=== PATIENT | female | born 1975 | race Caucasian/White ===

== ENCOUNTER 2018-09-21 16:02 | Observation (INO) ==
[2018-09-21] MEDS ORDERED: ONDANSETRON 4 MG/2 ML VIAL IVP ONE (16:29)
[2018-09-21] MEDS ORDERED: BENZOCAINE ORAL 57 GM SPRAY PO PRN (16:29)
[2018-09-21] MEDS ORDERED: KETOROLAC 15 MG/1 ML VIAL IVP ONE (16:29)
[2018-09-21] MEDS ORDERED: Sodium Chloride 0.9% 1,000 ML PRIMARY IV ONE (16:29)
--- NOTE | 2018-09-21 16:31 | PDOC ---
Dyspnea HPI - General Chief Complaint: Dyspnea Stated Complaint: dyspnea Date Seen by Provider: 09/21/18 Time Seen by Provider: 16:20 Source: POSITIVE: Patient Exam Limitations: POSITIVE: No limitations Treatment Prior to Arrival: REPORTS: None Nurse's Notes Reviewed & Considered: Yes - History of Present Illness Initial Comments: This is a well-developed, obese, 43-year-old female, complaining of chest pain, shortness of breath, cough. Patient has had her symptoms ongoing for approximately 3 days with intermittent chest pain that she describes as pressure that is nonradiating. She denies any headache, shows a mild sore throat, denies any nausea vomiting or diarrhea, no hematuria or dysuria, no myalgias or arthralgias. Body Location Affected: REPORTS: Chest Timing: REPORTS: Constant, Getting Worse Duration: >24 hours Severity: Moderate Quality: REPORTS: "Pain", Pressure Initiating Event: REPORTS: Upper Respiratory Illness Exacerbated By: REPORTS: Exertion, Coughing Associated Symptoms: REPORTS: Chest Pain, Central Chest, Chest Heaviness Similar Symptoms Previously: No Recently seen/treated/hospitalized: No Any Prior Injuries Related to Current Complaint?: No - Patient Home Medications Home Medications: Home Medications Albuterol [Proventil] 17 gm IH Q6H PRN 09/21/18 - Patient Allergies Allergies/Adverse Reactions: Allergies 3 Allergy/AdvReac Type Severity Reaction Status Date / Time Influenza Virus Vaccines Allergy NOT Verified 09/21/18 20:07 APPLICABLE ROS - Limitations ROS Limitations: No Limitations Constitution: REPORTS: Denies Symptoms Cardiovascular: REPORTS: Chest Pain Respiratory: REPORTS: Cough Non Productive, Shortness Of Breath Neurological: REPORTS: Denies Neuro Symptoms Gastrointestinal: REPORTS: Denies GI Symptoms Endocrine: REPORTS: Denies Symptoms Musculoskeletal: REPORTS: Denies MS Symptoms Genitourinary: REPORTS: Denies Symptoms Eyes: REPORTS: Denies Symptoms ENT: REPORTS: Sore Throat Skin: REPORTS: Denies Skin Symptoms Lympathic: REPORTS: Denies Lympathic Symptoms Immunologic: POSITIVE: Denies Symptoms Psychiatric: POSITIVE: Denies Psych Symptoms Dyspnea Physical Exam - General Appearance General Appearance: REPORTS: Alert, Cooperative, No Acute Distress, No Evidence of Trauma - HEENT HEENT: POSITIVE: Head Inspection Nml, Eyes Inspection Nml, Ears Inspection Nml, Nose Inspection Nml, Oral/Dental Inspect. Nml, Pharynx Inspect. Nml, PERRL, EOMI - Neck Neck: REPORTS: Normal Inspection - Respiratory Respiratory: REPORTS: No Respiratory Distress, Breath Sounds Normal, No Pleuritic Chest Pain, Speaks Full Sentences, No Pain on Inspiration - Cardiovascular Cardiovascular: REPORTS: Regular Rate and Rhythm, Heart Sounds Normal, Strong Pulses, No Murmur, No Gallop, No Friction Rub, No JVD Peripheral Pulses: Radial (L): 4+ - Abdomen Abdomen: Soft: (All Quadrants), Normal Bowel Sounds: (All Quadrants), Denies Tenderness: (All Quadrants), No Splenomegaly: (All Quadrants), No Hepatomegaly: (All Quadrants), No Guarding: (All Quadrants), No Rebound: (All Quadrants), No Palpable Pulse: (All Quadrants), No Palpabale Mass: (All Quadrants), No Distention: (All Quadrants), No Rigidity: (All Quadrants) - Skin Skin: REPORTS: Intact, Normal For Race, Warm, Dry, No Rash - Extremities Extremity: Non-Tender: (All Extremities), Normal ROM: (All Extremities), Normal Inspection: (All Extremities), Pelvis Stable: (All Extremities) - Neurological / Psychological Neurological: POSITIVE: Affect Apporpriate, Oriented X3, Motor Normal, Sensation Normal Dyspnea Progress - Results Reviewed by me Xrays/CTs/US Reviewed by me: Yes Discussed with Radiologist: Yes Lab Results Reviewed by Me: Yes CBC and BMP: 09/21/18 16:30 09/21/18 16:30 Lab Results:: Laboratory Results 3 09/21/18 09/21/18 09/21/18 16:29 16:30 16:30 WBC 6.52 RBC 4.73 Hgb 14.1 Hct 40.9 MCV 86.5 MCH 29.8 MCHC 34.5 RDW Std Deviation 42.4 RDW Coeff of Kwame 13.7 Plt Count 321 MPV 9.8 Immature Gran % (Auto) 0.3 Neut % (Auto) 60.2 Lymph % (Auto) 29.8 [place] % (Auto) 7.1 Eos % (Auto) 2.1 Baso % (Auto) 0.5 Immature Gran # (Auto) 0.02 Neut # (Auto) 3.93 Lymph # (Auto) 1.94 [place] # (Auto) 0.46 Eos # (Auto) 0.14 Baso # (Auto) 0.03 WBC Morphology Comment Normal morphology Plt Morphology Comment Normal morphology RBC Morph Comment Normal morphology D-Dimer 0.37 Sodium Potassium Chloride Carbon Dioxide Anion Gap BUN Creatinine Estimated GFR BUN/Creatinine Ratio Glucose Calculated Osmolality Calcium Magnesium Total Bilirubin AST ALT Alkaline Phosphatase CK-MB (CK-2) Troponin I Handheld 0.000 C-Reactive Protein NT-Pro-B Natriuret Pep Total Protein Albumin Globulin Albumin/Globulin Ratio TSH Group A Strep Screen 3 09/21/18 09/21/18 09/21/18 16:30 16:30 17:01 WBC RBC Hgb Hct MCV MCH MCHC RDW Std Deviation RDW Coeff of Kwame Plt Count MPV Immature Gran % (Auto) Neut % (Auto) Lymph % (Auto) [place] % (Auto) Eos % (Auto) Baso % (Auto) Immature Gran # (Auto) Neut # (Auto) Lymph # (Auto) [place] # (Auto) Eos # (Auto) Baso # (Auto) WBC Morphology Comment Plt Morphology Comment RBC Morph Comment D-Dimer Sodium 141 Potassium 3.6 L Chloride 110 Carbon Dioxide 23 Anion Gap 8 BUN 14 Creatinine 0.8 Estimated GFR > 60 BUN/Creatinine Ratio 17.50 Glucose 94 Calculated Osmolality 292.0 Calcium 8.7 Magnesium 1.9 Total Bilirubin 0.3 AST 44 H ALT 47 Alkaline Phosphatase 85 CK-MB (CK-2) 9.35 H Troponin I Handheld C-Reactive Protein 0.9 NT-Pro-B Natriuret Pep 71.7 Total Protein 6.9 Albumin 4.1 Globulin 2.9 Albumin/Globulin Ratio 1.40 TSH 1.15 Group A Strep Screen Negative 3 09/21/18 09/21/18 18:31 18:31 WBC RBC Hgb Hct MCV MCH MCHC RDW Std Deviation RDW Coeff of Kwame Plt Count MPV Immature Gran % (Auto) Neut % (Auto) Lymph % (Auto) [place] % (Auto) Eos % (Auto) Baso % (Auto) Immature Gran # (Auto) Neut # (Auto) Lymph # (Auto) [place] # (Auto) Eos # (Auto) Baso # (Auto) WBC Morphology Comment Plt Morphology Comment RBC Morph Comment D-Dimer Sodium Potassium Chloride Carbon Dioxide Anion Gap BUN Creatinine Estimated GFR BUN/Creatinine Ratio Glucose Calculated Osmolality Calcium Magnesium Total Bilirubin AST ALT Alkaline Phosphatase CK-MB (CK-2) 7.21 H Troponin I Handheld 0.000 C-Reactive Protein NT-Pro-B Natriuret Pep Total Protein Albumin Globulin Albumin/Globulin Ratio TSH Group A Strep Screen EKG Interpreted/Reviewed By Me:: Yes (sinus rhythm, 79 beats a minute, no ST elevations.) EKG Interpretation:: POSITIVE: Normal Sinus Rhythm, Normal ST/T - Patient's Progress Pain Medication Addressed: POSITIVE: Yes Status: POSITIVE: Improved MDM / ED Course: Patient was evaluated, an IV started, blood drawn and sent to the lab for studies, EKG and chest x-ray were obtained. Findings: Initial troponin was 0.000 an initial CK MB was 9.35. Upon repeat 2 hours later troponin was 0.000, and CK-MB was 7.21. D-dimer is normal at 0.37, CRP is normal at 0.9, BNP is normal at 71.7. CBC is normal. CMP shows a potassium of 3.6 and AST of 44. Strep swab is negative. TSH is 1.15. Mycoplasma is negative. Chest x-ray shows no acute cardiopulmonary decompensation. Assessment: #1 chest pain and shortness of breath. Patient is being admitted for rule out myocardial infarction. #2 laryngitis. Plan: Patient being admitted for rule out [place]. Air Movement: POSITIVE: Fair Quality Measure Initiative: CP/AMI: POSITIVE: EKG Quality Measure Initiative: CAP: POSITIVE: CXR or CT - Consult Consult (If Yes, Name of Consulting MD & Time Called): Yes (Dr. Hanson) Consulting MD will see pt:: POSITIVE: [facility] [place] Admit Counseled: POSITIVE: Patient, RE: Lab Results, RE: Radiology Results, RE: DX, RE : Need for F/U Patient Care Time - Estimated PCT Patient Care Time (In Minutes): 45 Vital Signs - Recent Vital Signs Vital Signs: Vital Signs (Last 8 hours) Temp Pulse Pulse Pulse Resp BP Pulse Ox 09/21/18 17:31 96.4 F L 99 99 22 146/90 98 09/21/18 16:04 95.9 F L 99 22 146/90 98 - VS Reviewed Vital Signs Reviewed: Yes Discharge Clinical Impression: Chest pain Discharge Disposition: Admit to Inpatient Condition: Fair Date Decision to Admit to Inpatient: 09/21/18 Time Decision to Admit to Inpatient: 18:48
[2018-09-21 16:40] LABS: BASOPHILS # (AUTO) 0.03 10*3/UL; BASOPHILS % (AUTO) 0.5 % (0-1); EOSINOPHILS # (AUTO) 0.14 10*3/UL; EOSINOPHILS % (AUTO) 2.1 % (0-8); Hematocrit [HCT] 40.9 % (37.0-47.0); Hemoglobin [HGB] 14.1 g/dL (12.0-16.0); LYMPHOCYTES # (AUTO) 1.94 10*3/uL; MEAN CORPUSCULAR HEMOGLOBIN 29.8 PG (27-31); MEAN CORPUSCULAR HGB CONC 34.5 g/dL (33-37); MEAN CORPUSCULAR VOLUME 86.5 FL (81-99); MEAN PLATELET VOLUME 9.8 FL (7.4-12.2); MONOCYTES # (AUTO) 0.46 10*3/UL (0.3-0.8); MONOCYTES % (AUTO) 7.1 % (5-15); NEUTROPHILS # (AUTO) 3.93 10*3/UL; NEUTROPHILS % (AUTO) 60.2 % (50-80); RED BLOOD COUNT 4.73 10^6/uL (4.20-5.40)
[2018-09-21 16:42] LABS: PLATELET MORPHOLOGY COMMENT NORMAL MORPHOLOGY (NORM); RBC MORPHOLOGY COMMENT NORMAL MORPHOLOGY (NORM); WBC MORPHOLOGY COMMENT NORMAL MORPHOLOGY (NORM)
--- NOTE | 2018-09-21 16:52 | EKG ---
[address] [address] Measurements Intervals [place] Rate: 79 P: 66 WV: 150 QRS: 48 QRSD: 94 T: 40 QT: 377 QTc: 412 Interpretive Statements SINUS RHYTHM No previous ECG available for comparison Electronically Signed On 09-21-18 18:37:09 MST by Richard Quintero [email or web address]
[2018-09-21 16:53] LABS: BLOOD UREA NITROGEN 14 mg/dL (7-22); SERUM ALBUMIN 4.1 g/dL (3.5-4.8)
--- NOTE | 2018-09-21 17:52 | DI ---
XR CXR 2VW PA/LAT,09/21/2018 4:29 PM: Clinical History: Cough, chest pain and shortness of breath. Previous Exam: None at this facility. Findings: PA and lateral views of the chest are obtained, and demonstrate clear lungs. The cardiomediastinum an d bony thorax are unremarkable. Impression: Normal chest.
--- NOTE | 2018-09-21 18:26 | EKG ---
[address] [address] Measurements Intervals [place] Rate: 74 P: 65 TN: 149 QRS: 45 QRSD: 86 T: 45 QT: 388 QTc: 415 Interpretive Statements SINUS RHYTHM Compared to ECG 09/21/2018 16:53:08 No significant changes Electronically Signed On 09-21-18 18:36:59 MST by Richard Quintero [email or web address]
[2018-09-21] MEDS ORDERED: ONDANSETRON 4 MG/2 ML VIAL IVP PRN (19:31)
[2018-09-21] MEDS ORDERED: CALCIUM CARBONATE 500 MG (TUMS) CHEWABLE TABLET PO PRN (19:31)
[2018-09-21] MEDS ORDERED: LIDOCAINE W/ SODIUM BICARB 0.5 ML SYR SUBD PRN (19:31)
[2018-09-21] MEDS ORDERED: ALBUTEROL SULFATE 2.5 MG/3 ML NEB PRN (19:31)
[2018-09-21] MEDS ORDERED: ASPIRIN 81 MG (BABY) CHEWABLE TABLET PO ONE (19:31)
[2018-09-21] MEDS ORDERED: NITROGLYCERIN 0.4 MG SL TAB (BOTTLE OF 3) SL PRN (19:31)
[2018-09-21 19:46] LABS: URINE SAMPLE TYPE VOIDED SPECIMEN
[2018-09-21 19:47] LABS: AMPHETAMINE SCREEN NEGATIVE (NEG); CANNABINOID SCREEN,URINE NEGATIVE (NEG); COCAINE SCREEN NEGATIVE (NEG); METHADONE URINE SCREEN NEGATIVE (NEG); METHAMPHETAMINES SCREEN,URINE NEGATIVE (NEG); OPIATE SCREEN,URINE NEGATIVE (NEG)
[2018-09-21] MEDS ORDERED: NICOTINE 21 MG /DAY PATCH TRANSDERM ONE (20:00)
--- NOTE | 2018-09-21 20:07 | PDOC ---
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 She states she's been coughing and has had increased phlegm. She came in today thinking that she might get breathing treatments and steroids, but her CK-MB fraction was elevated despite a negative troponin. EKGs appeared normal. She smokes a pack per day, has a positive family history. She does not have any diabetes, hypertension, or hypercholesterolemia. Given the abnormality in the CK-MB, patient risk factors , was felt that the patient might warrant checking stress test to make sure she does not have underlying coronary artery disease. She states that she has been using an albuterol inhaler at home but ran out this morning but it has not really been helping her much with these symptoms. Notably she also admits to smoking marijuana and drinks a sixpack of beer per night Past Medical History Medical History: 1. Asthma versus COPD. 2. Tobacco abuse. 3. Guillian- barre syndrome Surgical History: 1. . 2. History of tracheostomy Pertinent Family History: Significant for coronary artery disease and vascular issues in her mother Past Social History: History children, 4-year-old and an 18-year-old that are described as healthy. Single. Works here at a hotel. He smokes a pack per day , drinks a sixpack of beer a night, admits to smoking marijuana Tobacco Use: Current Every Day Smoker Do you dip or chew tobacco: No In the Past 12 Months, Have Used or Abuse Any of the Following Substance: Marijuana Alcohol Use: Heavy Medication / Allergies Home Medications: Home Medications 3 Medication Instructions Recorded Confirmed Type Albuterol [Proventil] 17 gm IH Q6H PRN 09/21/18 09/21/18 History Allergies/Adverse Reactions: Allergies 3 Allergy/AdvReac Type Severity Reaction Status Date / Time Influenza Virus Vaccines Allergy NOT Verified 09/21/18 20:07 APPLICABLE Review of Systems - Review of Systems All Systems: Reviewed & No Additional Complaints Except as Stated (I did a 12 point review systems and it was negative other than that discussed in the history of present illness and except as noted below) - Constitutional Constitutional: REPORTS: Weight Loss (Has lost 27 pounds, intentional) - Neurological Neurologic: REPORTS: Difficulty Walking (Due to foot drop from Guillain-barre syndrome), Other (Guillain-barre syndrome in the past) - Psychiatric Psychiatric: REPORTS: Anxiety (chronic) Exam - Vitals Vital Signs: Vital Signs Temperature 96.4 F Temperature Source Temporal Artery Scan Pulse Rate [Pulse Oximeter 99 Right] Pulse Rate [Pulse Oximeter 99 Bilateral Radial] Pulse Rate 99 Respiratory Rate 22 Blood Pressure [Left Arm] 146/90 Blood Pressure [Left Arm] 146/90 Pulse Ox 98 Oxygen Delivery Method Room Air Height 5 ft 1 in Weight 218 lb - General General Appearance: No Acute Distress, Cooperative, Obese - Head Head Exam: Normal Inspection, Normocephalic, Atraumatic - Eye Eye Exam: POSITIVE: No Scleral Icterus - ENT ENT Exam: POSITIVE: Normal External Ear Exam, Normal Oropharynx, TM's Normal Bilaterally, Mucous Membranes Moist - Neck Neck Exam: Normal Inspection, No Tenderness, No Lymphadenopathy, No Thyromegaly - Respiratory Respiratory Exam: POSITIVE: Clear to Auscultation - Bilaterally, Breathing Non Labored, Normal to Percussion and Palpation - Cardiovascular Cardiovascular Exam: POSITIVE: RRR, No Murmur, No Clicks, No Gallops, No Rubs, No JVD - GI/Abdominal GI/Abdominal Exam: POSITIVE: Normal Bowel Sounds, Non Tender, Non Distended, Soft - Rectal Rectal Exam: POSITIVE: Deferred - External Exam: POSITIVE: Deferred Exam: POSITIVE: Deferred - Extremities Extremities Exam: POSITIVE: No Clubbing Present, No Edema Present, No Cyanosis Present - Back Back Exam: POSITIVE: No CVA Tenderness - Neurological Neurological Exam: POSITIVE: Alert, Oriented x 3, No Facial Droop, Speech Intact / Clear, Moves All Extremities Equally - Psychiatric Psychiatric Exam: POSITIVE: Normal Affect, Normal Mood Results - Labs CBC and BMP: 09/21/18 16:30 09/21/18 16:30 Additional Lab Results: Laboratory Results 09/21/18 09/21/18 09/21/18 Range/Units 16:29 16:30 16:30 WBC 6.52 (4.8-10.8) 10^3/uL RBC 4.73 (4.20-5.40) 10^6/uL Hgb 14.1 (12.0-16.0) g/dL Hct 40.9 (37.0-47.0) % MCV 86.5 (81-99) FL MCH 29.8 (27-31) PG MCHC 34.5 (33-37) g/dL RDW Std Deviation 42.4 (39-50) fL RDW Coeff of Kwame 13.7 (11.5-14.5) % Plt Count 321 (140-350) 10*3/uL MPV 9.8 (7.4-12.2) FL Immature Gran % (Auto) 0.3 (0-5) % Neut % (Auto) 60.2 (50-80) % Lymph % (Auto) 29.8 (10-50) % Russell % (Auto) 7.1 (5-15) % Eos % (Auto) 2.1 (0-8) % Baso % (Auto) 0.5 (0-1) % Immature Gran # (Auto) 0.02 10*3/UL Neut # (Auto) 3.93 10*3/UL Lymph # (Auto) 1.94 10*3/uL Russell # (Auto) 0.46 (0.3-0.8) 10*3/UL Eos # (Auto) 0.14 10*3/UL Baso # (Auto) 0.03 10*3/UL WBC Morphology Comment Normal morphology (NORM) Plt Morphology Comment Normal morphology (NORM) RBC Morph Comment Normal morphology (NORM) D-Dimer 0.37 (0.00-0.59) mg/L Sodium (135-145) meq/L Potassium (3.8-5.2) meq/L Chloride (98-112) meq/L Carbon Dioxide (23-33) meq/L Anion Gap (5-20) BUN (7-22) mg/dL Creatinine (0.50-1.20) mg/dL Estimated GFR (>60 ml/min/1.73m(2)) BUN/Creatinine Ratio (6-20) Glucose (78-110) mg/dL Calculated Osmolality (267-292) mOsm/kg Calcium (8.7-10.7) mg/dL Magnesium (1.6-2.4) mg/dL Total Bilirubin (0.3-1.2) mg/dL AST (8-39) IU/L ALT (9-52) IU/L Alkaline Phosphatase (38-126) IU/L CK-MB (CK-2) (0.00-5.00) NG/ML Troponin I Handheld 0.000 (< 0.040) ng/mL C-Reactive Protein (0.0-0.9) mg/dL NT-Pro-B Natriuret Pep (0-125) PG/ML Total Protein (6.1-8.0) g/dL Albumin (3.5-4.8) g/dL Globulin (2.50-4.10) g/dL Albumin/Globulin Ratio (1.3-2.0) mg/g TSH (0.2700-4.2000) uIU/mL Ur Collection Type U Specif Grav (Refrac) Urine Opiates Screen (NEG) Ur Buprenorphine (NEG) Ur Oxycodone Screen (NEG) Urine Methadone Screen (NEG) Ur Propoxyphene Screen (NEG) Barbiturate Screen (NEG) U Tricyclic Antidepress (NEG) Phencyclidine Screen (NEG) Amphetamines Screen (NEG) U Methamphetamines Scrn (NEG) Benzodiazepines Screen (NEG) Cocaine Screen (NEG) U Marijuana (THC) Screen (NEG) Group A Strep Screen (NEGATIVE) 09/21/18 09/21/18 09/21/18 Range/Units 16:30 16:30 17:01 WBC (4.8-10.8) 10^3/uL RBC (4.20-5.40) 10^6/uL Hgb (12.0-16.0) g/dL Hct (37.0-47.0) % MCV (81-99) FL MCH (27-31) PG MCHC (33-37) g/dL RDW Std Deviation (39-50) fL RDW Coeff of Wkame (11.5-14.5) % Plt Count (140-350) 10*3/uL MPV (7.4-12.2) FL Immature Gran % (Auto) (0-5) % Neut % (Auto) (50-80) % Lymph % (Auto) (10-50) % Russell % (Auto) (5-15) % Eos % (Auto) (0-8) % Baso % (Auto) (0-1) % Immature Gran # (Auto) 10*3/UL Neut # (Auto) 10*3/UL Lymph # (Auto) 10*3/uL Russell # (Auto) (0.3-0.8) 10*3/UL Eos # (Auto) 10*3/UL Baso # (Auto) 10*3/UL WBC Morphology Comment (NORM) Plt Morphology Comment (NORM) RBC Morph Comment (NORM) D-Dimer (0.00-0.59) mg/L Sodium 141 (135-145) meq/L Potassium 3.6 L (3.8-5.2) meq/L Chloride 110 (98-112) meq/L Carbon Dioxide 23 (23-33) meq/L Anion Gap 8 (5-20) BUN 14 (7-22) mg/dL Creatinine 0.8 (0.50-1.20) mg/dL Estimated GFR > 60 (>60 ml/min/1.73m(2)) BUN/Creatinine Ratio 17.50 (6-20) Glucose 94 (78-110) mg/dL Calculated Osmolality 292.0 (267-292) mOsm/kg Calcium 8.7 (8.7-10.7) mg/dL Magnesium 1.9 (1.6-2.4) mg/dL Total Bilirubin 0.3 (0.3-1.2) mg/dL AST 44 H (8-39) IU/L ALT 47 (9-52) IU/L Alkaline Phosphatase 85 (38-126) IU/L CK-MB (CK-2) 9.35 H (0.00-5.00) NG/ML Troponin I Handheld (< 0.040) ng/mL C-Reactive Protein 0.9 (0.0-0.9) mg/dL NT-Pro-B Natriuret Pep 71.7 (0-125) PG/ML Total Protein 6.9 (6.1-8.0) g/dL Albumin 4.1 (3.5-4.8) g/dL Globulin 2.9 (2.50-4.10) g/dL Albumin/Globulin Ratio 1.40 (1.3-2.0) mg/g TSH 1.15 (0.2700-4.2000) uIU/mL Ur Collection Type U Specif Grav (Refrac) Urine Opiates Screen (NEG) Ur Buprenorphine (NEG) Ur Oxycodone Screen (NEG) Urine Methadone Screen (NEG) Ur Propoxyphene Screen (NEG) Barbiturate Screen (NEG) U Tricyclic Antidepress (NEG) Phencyclidine Screen (NEG) Amphetamines Screen (NEG) U Methamphetamines Scrn (NEG) Benzodiazepines Screen (NEG) Cocaine Screen (NEG) U Marijuana (THC) Screen (NEG) Group A Strep Screen Negative (NEGATIVE) 09/21/18 09/21/18 09/21/18 Range/Units 18:31 18:31 19:30 WBC (4.8-10.8) 10^3/uL RBC (4.20-5.40) 10^6/uL Hgb (12.0-16.0) g/dL Hct (37.0-47.0) % MCV (81-99) FL MCH (27-31) PG MCHC (33-37) g/dL RDW Std Deviation (39-50) fL RDW Coeff of Kwame (11.5-14.5) % Plt Count (140-350) 10*3/uL MPV (7.4-12.2) FL Immature Gran % (Auto) (0-5) % Neut % (Auto) (50-80) % Lymph % (Auto) (10-50) % Russell % (Auto) (5-15) % Eos % (Auto) (0-8) % Baso % (Auto) (0-1) % Immature Gran # (Auto) 10*3/UL Neut # (Auto) 10*3/UL Lymph # (Auto) 10*3/uL Russell # (Auto) (0.3-0.8) 10*3/UL Eos # (Auto) 10*3/UL Baso # (Auto) 10*3/UL WBC Morphology Comment (NORM) Plt Morphology Comment (NORM) RBC Morph Comment (NORM) D-Dimer (0.00-0.59) mg/L Sodium (135-145) meq/L Potassium (3.8-5.2) meq/L Chloride (98-112) meq/L Carbon Dioxide (23-33) meq/L Anion Gap (5-20) BUN (7-22) mg/dL Creatinine (0.50-1.20) mg/dL Estimated GFR (>60 ml/min/1.73m(2)) BUN/Creatinine Ratio (6-20) Glucose (78-110) mg/dL Calculated Osmolality (267-292) mOsm/kg Calcium (8.7-10.7) mg/dL Magnesium (1.6-2.4) mg/dL Total Bilirubin (0.3-1.2) mg/dL AST (8-39) IU/L ALT (9-52) IU/L Alkaline Phosphatase (38-126) IU/L CK-MB (CK-2) 7.21 H (0.00-5.00) NG/ML Troponin I Handheld 0.000 (< 0.040) ng/mL C-Reactive Protein (0.0-0.9) mg/dL NT-Pro-B Natriuret Pep (0-125) PG/ML Total Protein (6.1-8.0) g/dL Albumin (3.5-4.8) g/dL Globulin (2.50-4.10) g/dL Albumin/Globulin Ratio (1.3-2.0) mg/g TSH (0.2700-4.2000) uIU/mL Ur Collection Type Voided specimen U Specif Grav (Refrac) 1.010 Urine Opiates Screen Negative (NEG) Ur Buprenorphine Negative (NEG) Ur Oxycodone Screen Negative (NEG) Urine Methadone Screen Negative (NEG) Ur Propoxyphene Screen Negative (NEG) Barbiturate Screen Negative (NEG) U Tricyclic Antidepress Negative (NEG) Phencyclidine Screen Negative (NEG) Amphetamines Screen Negative (NEG) U Methamphetamines Scrn Negative (NEG) Benzodiazepines Screen Negative (NEG) Cocaine Screen Negative (NEG) U Marijuana (THC) Screen Negative (NEG) Group A Strep Screen (NEGATIVE) - EKG Data -: EKG Interpreted by Me Rate: Normal EKG Shows Normal: Sinus Rhythm (On both EKGs) - EKG Data EKG Interpretation: Normal EKG - Imaging Status: Image Reviewed by Me (Chest x-ray on my view is negative) Assessment and Plan - Patient Problems (1) Upper respiratory infection Current Visit: Yes Status: Acute Code(s): J06.9 - Acute upper respiratory infection, unspecified Qualifiers: URI type: unspecified viral URI Qualified Code(s): J06.9 - Acute upper respiratory infection, unspecified (2) Exertional chest pain Current Visit: Yes Status: Acute Code(s): R07.9 - Chest pain, unspecified (3) Tobacco abuse Current Visit: Yes Status: Acute Code(s): Z72.0 - Tobacco use (4) Alcohol abuse Current Visit: Yes Status: Acute Code(s): F10.10 - Alcohol abuse, uncomplicated (5) Hypokalemia Current Visit: Yes Status: Acute Code(s): E87.6 - Hypokalemia (6) Hx of Guillain-[place] syndrome Current Visit: Yes Status: Acute Code(s): Z86.69 - Personal history of other diseases of the nervous system and sense organs - Assessment / Plan Additional Assessment/Plan Details: Plan: 1. Do serial enzymes with troponins. CK-MB did come down on the last test 2. Aspirin, Lovenox 3. We'll have the patient do a stress test [chemical] 4. Proton pump inhibitor 5. Nitroglycerin when necessary for chest pain 6. Given the issues with Guillain-barre syndrome, no flu vaccine 7. Oxygen if necessary 8. If testing indicates further need for evaluation, discussion with cardiology. If testing is negative for myocardial infarction and no further indication for coronary artery disease, consider outpatient workup for GI source , pulmonary source, or other 9. zithromax, prednisone, oxygen as necessary, breathing therapies PRN, and [place] on tobacco cessation; try nicotine patch. 10. lipid panel and TSH in AM plan discussed with patient and she agreed.
[2018-09-21] MEDS: predniSONE Tab 20 MG TAB PO SCH (20:30)
[2018-09-21] MEDS: AZITHROMYCIN 250 MG TABLET PO SCH (20:30)
[2018-09-21] MEDS: IBUPROFEN 400 MG TABLET PO PRN (20:40)
[2018-09-21] MEDS: LORazepam 1 MG TABLET PO PRN (21:30)
[2018-09-22] MEDS: IBUPROFEN 400 MG TABLET PO PRN ×2 (03:29→10:17)
[2018-09-22 06:58] LABS: CHOL/HDL RATIO 2.63 RATIO (0-4.0)
[2018-09-22] MEDS: ENOXAPARIN SODIUM 40 MG/0.4 ML SYRINGE SUBCUT SCH (08:01)
[2018-09-22] MEDS: predniSONE Tab 20 MG TAB PO SCH (08:01)
[2018-09-22] MEDS: AZITHROMYCIN 250 MG TABLET PO SCH (08:01)
[2018-09-22] MEDS: PANTOPRAZOLE IV 40 MG VIAL IVP SCH (08:02)
[2018-09-22] MEDS: ASPIRIN 81 MG (BABY) CHEWABLE TABLET PO SCH (08:02)
[2018-09-22] MEDS: NICOTINE 21 MG /DAY PATCH TRANSDERM SCH (08:02)
--- NOTE | 2018-09-22 10:15 | PDOC(PROG) ---
Date of Service: 09/22/18 Time of Service: 10:20 Interval History: Subjective Patient came into the hospital with history of tightness in the chest, shortness of breath and headaches. And she had ear pain. Objective : Data - Labs CBC and BMP: 09/21/18 16:30 09/21/18 16:30 Objective : Exam - General General Appearance: No Acute Distress, Cooperative - Head Head Exam: Normal Inspection - Eye Eye Exam: Normal Appearance - ENT ENT Exam: Normal Exam - Neck Neck Exam: Normal Inspection - Respiratory Respiratory Exam: Clear to Auscultation - Bilaterally - Cardiovascular Cardiovascular Exam: RRR - GI/Abdominal GI/Abdominal Exam: Normal Bowel Sounds, Non Tender, Non Distended, Soft, No Organomegaly - Rectal Rectal Exam: Deferred - External Exam: Deferred - Extremities Extremities Exam: Normal Inspection - Back Back Exam: Normal Inspection - Neurological Neurological Exam: Alert, Oriented x 3, No Facial Droop, Speech Intact / Clear, Moves All Extremities Equally - Psychiatric Psychiatric Exam: Normal Affect Assessment and Plan - Patient Problems (1) Upper respiratory infection Current Visit: Yes Status: Acute Comment: She is on antibiotics and steroid and breathing treatment continue. Code(s): J06.9 - Acute upper respiratory infection, unspecified Qualifiers: URI type: unspecified viral URI Qualified Code(s): J06.9 - Acute upper respiratory infection, unspecified (2) Exertional chest pain Current Visit: Yes Status: Acute Comment: EKG and troponin are negative. She had the resting images today she' ll have the stress test tomorrow. Code(s): R07.9 - Chest pain, unspecified (3) Tobacco abuse Current Visit: Yes Status: Acute Comment: She has Nicotine patch, she is thinking about quitting smoking Code(s): Z72.0 - Tobacco use (4) Hypokalemia Current Visit: Yes Status: Acute Comment: Potassium is borderline we'll give her a dosage today. Code(s): E87.6 - Hypokalemia (5) Hx of Guillain-[place] syndrome Current Visit: Yes Status: Acute Comment: This is inactive Code(s): Z86.69 - Personal history of other diseases of the nervous system and sense organs
[2018-09-22] MEDS: ACETAMINOPHEN 325 MG TABLET PO PRN ×2 (10:16→16:23)
[2018-09-22] MEDS: LORazepam 1 MG TABLET PO PRN (14:42)
[2018-09-22] MEDS: HYDROcodone-APAP 5 MG -325 MG TABLET PO PRN (19:15)
[2018-09-23] MEDS: HYDROcodone-APAP 5 MG -325 MG TABLET PO PRN ×4 (00:04→13:10)
[2018-09-23] MEDS: LORazepam 1 MG TABLET PO PRN (07:28)
[2018-09-23] MEDS: PANTOPRAZOLE IV 40 MG VIAL IVP SCH (09:17)
[2018-09-23] MEDS: ASPIRIN 81 MG (BABY) CHEWABLE TABLET PO SCH (09:18)
[2018-09-23] MEDS: NICOTINE 21 MG /DAY PATCH TRANSDERM SCH (09:18)
[2018-09-23] MEDS: predniSONE Tab 20 MG TAB PO SCH (09:18)
[2018-09-23] MEDS: ENOXAPARIN SODIUM 40 MG/0.4 ML SYRINGE SUBCUT SCH (09:18)
[2018-09-23] MEDS: AZITHROMYCIN 250 MG TABLET PO SCH (09:18)
--- NOTE | 2018-09-23 09:41 | STRESSTEST ---
[facility] Interpretive Statements Patient had Lexiscan stress test per protocol, Baseline BP was 122/86, baseline heart rate was 78, baseline EKG showed sinus rhythm with poor R waves progression in the anterior leads, post injection patient did have some shortness of breath and chest pressure and that seems to be resolved in the recovery phase. , No new EKG changes noted., Conclusion: No EKG changes noted on the EKG part of lexiscan stress test. images are pending. [id number]
[2018-09-23] MEDS ORDERED: Potassium Chloride Tab 10 MEQ TAB PO SCH (10:19)
[2018-09-23 11:38] VITALS: BP 134/75; RESP 20; TEMP 97.6; O2SAT 94
--- NOTE | 2018-09-23 13:41 | DI ---
2 DAY LEXISCAN STRESS & REST MYOCARDIAL PERFUSION SCANS, 09/22/2018 7:30 AM : Clinical History: Chest pain Previous Exam: None at this facility. The patient was stressed by Dr. Jonatan Ceballos The standard Lexiscan protocol was used. Please see the Doctor's report. At the designated time, 32.8 mCi of 99Tc-sestimibi was injected IV. Stress gated tomograms were acquired within one hour of the i njection. For the resting scans, 32.8 mCi was injected IV and resting gated tomograms were acquired in similar fashion. Stress scans were performed on September 22, 2018; the resting scans were performed on September 23. Quantitative and qualitative analyses were performed. Quantitative analysis was performed with the [place] [facility] [id number] protocols. Very low dose limited CT scans of the chest are o btained through the level of the heart for attenuation correction of the gated stress and rest cardia c SPECT data. Non-attenuated and attenuated scans were processed for review, and the attenuated scans were used for final interpretation of this study. Review of the raw data images and quality analyst/technical writer files indicate that these series of examinations ar e of excellent quality. Stress and rest left ventricular chamber sizes are normal. Stress and rest LV EF are 70 % and 80 %, respectively. There is a medium-sized fixed defect within the anterior wall extending from the mid slices to the a pex. There is a small mild intensity reversible defect involving the inferior apex. There is a fixed defec t involving the inferior base. Wall motion is normal. Transient ischemic dilatation ratio is 1.13, with a normal range up to 1.22 for patients stressed wi th the Madan protocol and up to 1.33 for patients stressed with the Lexiscan protocol. The very low dose CT scans through the level of the heart show no coronary artery calcifications. The re is no adenopathy or evidence of lung nodules. Reading: Predominantly fixed anterior ventricular wall defect with normal wall motion and normal ejection frac tion. There is a small mild intensity area of reversibility near the inferior apex which is believed to be artifactual from a large fixed inferior wall defect.
--- NOTE | 2018-09-23 14:08 | DCSUMMARY ---
Hospitalization Summary Admit Date: 09/21/2018 Discharge Date: 09/23/18 Hospital Course: Transfer diagnoses 1. Chest pressure with abnormal stress test 2. Upper respiratory tract infection 3. History of COPD 4. Tobacco abuse 5. 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 History of GERD 8. anxiety Hospital course This is a 43 years old female with medical history significant for history of COPD on inhalers, who continued to smoke. She came into the hospital with history of increased chest pressure and shortness of breath worse with exertion and relieved by rest. She did report also cough and increased phlegm production. Because of the symptoms she came into the ER. His CK MB fraction was elevated despite a negative troponin. EKG was normal. She has a positive family history so she was admitted. for her upper respiratory infection was put on steroids, Zithromax and inhalers. Her troponin repeated remain negative. She did have a Lexiscan stress test which showed predominantly anterior ventricular wall defect with normal wall motion and normal ejection fraction. There is a small mild intensity area of reversibility near the inferior apex which is believed to be artifactual from a large fixed inferior wall defect. Because of the finding I did speak with Dr. Hardy the customer counter representative who suggested transfer for an angiogram. I did speak with the patient she agreed on transfer. Patient did have a history of GERD and she was put on Protonix in addition she was also anxious for which she was put on Ativan. Discharge instruction Diet regular Activity as started Medications Active Medications Acetaminophen (Tylenol) 650 mg PO Q6H PRN PRN Reason: Pain Last Admin: 09/22/18 16:23 Dose: 650 mg Hydrocodone Bitart/Acetaminophen ([place] 5/325 Tab) 1 tab PO Q4H PRN PRN Reason: Pain Last Admin: 09/23/18 13:10 Dose: 1 tab Albuterol Sulfate (Albuterol Neb Soln 0.083%) 2.5 mg NEB RTQID PRN PRN Reason: SOB, cough Last Admin: 09/22/18 02:11 Dose: 2.5 mg Aspirin (Aspirin Chewable Tab) 81 mg PO DAILY LIVE Last Admin: 09/23/18 09:18 Dose: 81 mg Azithromycin (Zithromax) 500 mg PO DAILY LIVE Stop: 09/23/18 23:59 Last Admin: 09/23/18 09:18 Dose: 500 mg Calcium Carbonate (Tums) 1 - 2 tab PO QID PRN PRN Reason: Heartburn Enoxaparin Sodium (Lovenox Inj) 40 mg SUBCUT DAILY [facility] Last Admin: 09/23/18 09:18 Dose: 40 mg Sodium Chloride (Normal Saline 0.9%) 25 mls @ 200 mls/hr IV .Post Infusion PRN PRN Reason: Flush Ibuprofen (Motrin) 800 mg PO Q8H PRN PRN Reason: Pain Last Admin: 09/22/18 10:17 Dose: 800 mg Lidocaine HCl (Lidocaine Buffered Inj) 0.5 ml SUBD ONCE PRN PRN Reason: IV Starts Lorazepam (Ativan Tab) 1 mg PO TID PRN PRN Reason: Anxiety Last Admin: 09/23/18 07:28 Dose: 1 mg Nicotine (Nicoderm Cq 21mg Patch) 1 patch TRANSDERM DAILY [facility] Last Admin: 09/23/18 09:18 Dose: 1 patch Nitroglycerin (Nitrostat Sl 0.4mg Tab) 1 tab SL Q5M PRN PRN Reason: Chest Pain Ondansetron HCl (Zofran Inj) 4 mg IVP Q4H PRN PRN Reason: NAUSEA / VOMITING Pantoprazole Sodium (Protonix Inj) 40 mg IVP DAILY [facility] Last Admin: 09/23/18 09:17 Dose: 40 mg Potassium Chloride (Klor-Con) 10 meq PO DAILY [facility] Last Admin: 09/23/18 09:18 Dose: 10 meq Prednisone (Deltasone Tab) 40 mg PO DAILY [facility] Stop: 09/25/18 23:59 Last Admin: 09/23/18 09:18 Dose: 40 mg [place] [facility] [place] Condition at transfer stable for transfer Exam - Vitals Vital Signs: Vital Signs Temperature 97.6 F Temperature Source Temporal Artery Scan Pulse Rate [Apical] 98 Pulse Rate [Pulse Oximeter] 96 Pulse Rate [Pulse Oximeter 80 Right] Pulse Rate [Pulse Oximeter 99 Bilateral Radial] Pulse Rate 95 Respiratory Rate 20 Blood Pressure [Right Arm] 134/75 Blood Pressure [Left Arm] 133/90 Blood Pressure [Left Arm] 146/90 Blood Pressure 143/105 Pulse Ox 94 Oxygen Flow Rate 2 Oxygen Delivery Method Room Air Height 5 ft 1 in Weight 219 lb 6.4 oz - General General Appearance: No Acute Distress, Cooperative, Obese - Head Head Exam: Normal Inspection - Eye Eye Exam: POSITIVE: Normal Appearance - ENT ENT Exam: POSITIVE: Normal Exam - Neck Neck Exam: Normal Inspection - Respiratory Respiratory Exam: POSITIVE: Clear to Auscultation - Bilaterally - Cardiovascular Cardiovascular Exam: POSITIVE: RRR - GI/Abdominal GI/Abdominal Exam: POSITIVE: Normal Bowel Sounds, Non Tender, Non Distended, Soft, No Organomegaly - Rectal Rectal Exam: POSITIVE: Deferred - External Exam: POSITIVE: Deferred - Extremities Extremities Exam: POSITIVE: Normal Inspection - Back Back Exam: POSITIVE: Normal Inspection - Neurological Neurological Exam: POSITIVE: Alert, Oriented x 3, CN II-XII Intact, Speech Intact / Clear - Psychiatric Psychiatric Exam: POSITIVE: Normal Affect - Integumentary Integumentary Exam: POSITIVE: Normal Color Patient Problems - Patient Problem List (1) Upper respiratory infection Current Visit: Yes Status: Acute Code(s): J06.9 - Acute upper respiratory infection, unspecified Qualifiers: URI type: unspecified viral URI Qualified Code(s): J06.9 - Acute upper respiratory infection, unspecified Category: Medical (2) Exertional chest pain Current Visit: Yes Status: Acute Code(s): R07.9 - Chest pain, unspecified Category: Medical (3) Tobacco abuse Current Visit: Yes Status: Acute Code(s): Z72.0 - Tobacco use Category: Medical (4) Hypokalemia Current Visit: Yes Status: Acute Code(s): E87.6 - Hypokalemia Category: Medical (5) Hx of Guillain-[place] syndrome Current Visit: Yes Status: Acute Code(s): Z86.69 - Personal history of other diseases of the nervous system and sense organs Category: Medical
[2018-09-23] MEDS ORDERED: LORazepam 1 MG TABLET PO ONE (14:15)
== END 2018-09-23 15:02 | disposition short-term general hospital (02) ==
LOC: ER 16:02 → MED/SURG 16:02
PROVIDERS: ADMIT Family Medicine; ATTEND Family Medicine

== ENCOUNTER 2018-10-15 17:36 | Observation (INO) ==
[2018-10-15] MEDS ORDERED: MORPHINE SULFATE 4 MG/1 ML IVP ONE (17:55)
[2018-10-15] MEDS ORDERED: Sodium Chloride 0.9% 1,000 ML PRIMARY IV ONE (17:55)
--- NOTE | 2018-10-15 17:57 | EKG ---
[address] [address] Measurements Intervals [place] Rate: 94 P: 72 ID: [id number] QRS: 63 QRSD: 98 T: 69 QT: 355 QTc: 406 Interpretive Statements SINUS RHYTHM Compared to ECG 09/21/2018 18:25:54 No significant changes Electronically Signed On 10-16-18 08:10:24 MST by Ross Viera MD [id number]
[2018-10-15 18:10] LABS: BASOPHILS # (AUTO) 0.03 10*3/UL; BASOPHILS % (AUTO) 0.4 % (0-1); BLOOD UREA NITROGEN 16 mg/dL (7-22); BUN/CREATININE RATIO 22.85 (6-20); EOSINOPHILS # (AUTO) 0.13 10*3/UL; EOSINOPHILS % (AUTO) 1.6 % (0-8); Hemoglobin [HGB] 13.8 g/dL (12.0-16.0); LYMPHOCYTES # (AUTO) 2.49 10*3/uL; MEAN CORPUSCULAR HEMOGLOBIN 30.3 PG (27-31); MEAN CORPUSCULAR HGB CONC 34.5 g/dL (33-37); MEAN CORPUSCULAR VOLUME 87.9 FL (81-99); MONOCYTES # (AUTO) 0.59 10*3/UL (0.3-0.8); MONOCYTES % (AUTO) 7.1 % (5-15); NEUTROPHILS # (AUTO) 5.06 10*3/UL; NEUTROPHILS % (AUTO) 60.8 % (50-80); RED BLOOD COUNT 4.55 10^6/uL (4.20-5.40); SERUM ALBUMIN 3.9 g/dL (3.5-4.8)
[2018-10-15 18:11] LABS: PLATELET MORPHOLOGY COMMENT NORMAL MORPHOLOGY (NORM); RBC MORPHOLOGY COMMENT NORMAL MORPHOLOGY (NORM); WBC MORPHOLOGY COMMENT NORMAL MORPHOLOGY (NORM)
[2018-10-15] MEDS ORDERED: ATORVASTATIN 40 MG TABLET PO ONE ×2 (19:36→23:21)
[2018-10-15] MEDS ORDERED: NITROGLYCERIN 0.4 MG SL TAB (BOTTLE OF 3) SL ONE (20:54)
--- NOTE | 2018-10-15 21:00 | PDOC ---
HPI - History of Present Illness History of Present Illness: This very nice 43-year-old female who was admitted last week for chest pain. She had a Lexiscan stress test which was positive by Dr. Ceballos. She was subsequ ently transferred to [facility] for catheter. Once she got there the patient signed out AMA. Patient comes back to the ER today for continuing chest pain but not short of breath she says her pain travels to her neck. In the ER she still was having pain 5 out of 10 and instructed the ER to give her sublingual nitroglycerin Dr. Zhang talk with Dr. Mallory the belt cutter which recommended to admit overnight and check her troponins 3. And then eventually may be sending her out home so she can get catheter as an outpatient this was the recommendation of the belt cutter according to Dr. Zhang Past Medical History Medical History: 1. Asthma versus COPD. 2. Tobacco abuse. 3. Guillian-barre syndrome Surgical History: 1. . 2. History of tracheostomy Pertinent Family History: Significant for coronary artery disease and vascular issues in her mother Past Social History: History children, 4-year-old and an 18-year-old that are described as healthy. Single. Works here at a hotel. He smokes a pack per day, drinks a sixpack of beer a night, admits to smoking marijuana Tobacco Use: Current Every Day Smoker In the Past 12 Months, Have Used or Abuse Any of the Following Substance: Marijuana Medication / Allergies Home Medications: Home Medications Medication Instructions Recorded Confirmed Type NK 10/15/18 10/15/18 History Allergies/Adverse Reactions: Allergies Allergy/AdvReac Type Severity Reaction Status Date / Time Penicillins Allergy Intermediate HIVES Verified 10/15/18 17:40 Influenza Virus Vaccines Allergy NOT Verified 10/15/18 17:40 APPLICABLE Review of Systems - Review of Systems All Systems: Reviewed & No Additional Complaints Except as Stated - Respiratory Respiratory: DENIES: Negative System Review, Cough, Sputum, Dyspnea At Rest, Dyspnea with Exertion, Pleuritic Pain, Hemoptysis, Wheezing, Other, See HPI - Cardiovascular Cardiovascular: REPORTS: Chest Pain - Gastrointestinal Gastrointestinal / Abdominal: DENIES: Negative System Review, Nausea, Vomiting, Diarrhea, Constipation, Abdominal Pain, Bloody Stool, Poor Appetite, Heartburn, Regurgitation, Bloating, Lactose Intolerance, Melena, Bright Red Blood per Rectum, Other, See HPI Exam - Vitals Vital Signs: Vital Signs Temperature 97.8 F Temperature Source Temporal Artery Scan Pulse Rate [Telemetry] 94 Respiratory Rate 14 Blood Pressure [Left Arm] 133/78 Pulse Ox 93 Oxygen Delivery Method Room Air Height 5 ft 1 in Weight 220 lb - General General Appearance: No Acute Distress, Cooperative - Respiratory Respiratory Exam: POSITIVE: Clear to Auscultation - Bilaterally, Breathing Non Labored, Normal To Percussion, Normal to Percussion and Palpation - Cardiovascular Cardiovascular Exam: POSITIVE: RRR, No Murmur, No Clicks, No Gallops, No Rubs, PMI Non-Displaced - GI/Abdominal GI/Abdominal Exam: POSITIVE: Normal Bowel Sounds, Non Tender, Non Distended, Soft, No Masses, No Hepatomegaly, No Splenomegaly, No Organomegaly - Extremities Extremities Exam: POSITIVE: No Clubbing Present, No Edema Present, No Cyanosis Present Results - Labs CBC and BMP: 10/15/18 18:00 10/15/18 18:00 Assessment and Plan - Patient Problems (1) Chest pain Current Visit: No Status: Acute Comment: Patient has a positive stress test apparently at the [facility] as scheduled her as an outpatient for a cath this is not confirmed recommendation was to admit her and rule her out this was according to the ER physician first troponin is negative I will start statin aspirin and beta brendan will also give her a sublingual nitroglycerin which I told the nurse in the ER since her pain was 5 out of 10 Code(s): R07.9 - Chest pain, unspecified
[2018-10-15] MEDS ORDERED: ASPIRIN 81 MG (BABY) CHEWABLE TABLET PO ONE (21:26)
[2018-10-15] MEDS ORDERED: LIDOCAINE W/ SODIUM BICARB 0.5 ML SYR SUBD PRN (21:26)
[2018-10-15] MEDS ORDERED: CALCIUM CARBONATE 500 MG (TUMS) CHEWABLE TABLET PO PRN (21:26)
[2018-10-15] MEDS: Metoprolol TARTRATE Tab 25 MG TAB PO SCH (21:56)
[2018-10-15] MEDS: MORPHINE SULFATE 2 MG/1 ML IV PRN (21:57)
--- NOTE | 2018-10-15 22:14 | DI ---
XR CXR 1VW 10/15/2018 5:55 PM HISTORY: [facility] DI ^Chest Pain Comparison: None. Findings: A single portable frontal view of the chest is submitted. Images demonstrate normal aeration without focal consolidation. There is no large pneumothorax or ple ural effusion. The cardiomediastinal silhouette is within normal limits for technique. The osseous st ructures are grossly unremarkable. Impression: No radiographic evidence of acute cardiopulmonary disease.
--- NOTE | 2018-10-16 01:00 | PDOC ---
Chest Pain HPI - General Chief Complaint: Chest Pain Stated Complaint: CHEST PAIN WITH RIGHT ARM NUMBNESS Date Seen by Provider: 10/15/18 Time Seen by Provider: 17:45 Source: Patient, EMS, Old records Exam Limitations: POSITIVE: No limitations Treatment Prior to Arrival: REPORTS: Nitroglycerin, Oxygen, Aspirin, Other (Morphine sulfate, given in field by paramedics) Nurse's Notes Reviewed & Considered: Yes EMS Report Reviewed & Considered: Verbal - History of Present Illness Initial Comments: The patient is a 43-year-old female who is brought to the emergency room by ambulance from her place of work in [facility]. 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 Ambulance was called and paramedics adminis tered 4 baby aspirin, 2 mg of morphine sulfate and nitroglycerin sublingual. She states that at its maximum she rates the intensity of her pain as a "7 on a scale of 10". On presentation to the emergency room she rates the intensity of her pain as a "3 on a scale of 10". Patient was seen in this emergency room on 21 September with chest pain. On 22 September patient had a 2 day Lexiscan stress and rest myocardial perfusion scan, which showed "medium sized fixed defect within the anterior wall extending from the mid slices to the apex". Following this Lexiscan the patient was transferred to [facility] and it was recommended by her attending windows admin that she have a coronary arteriogram. However, the patient refused to have this test and she signed out of the hospital AGAINST MEDICAL ADVICE. She states that she is scheduled for a coronary arteriogram by her windows admin in [place] for this coming Friday, 4 days from today. Patient smokes a pack of cigarettes per day and states she drinks about 6 beers per day. She does not know the name of her windows admin. She denies any shortness of breath, syncope or near-syncope, GI or symptoms. She states that she thinks sometimes her chest pain radiates into the right shoulder. Body Location Affected: REPORTS: Chest Timing: REPORTS: Abrupt, Constant Duration: 4-6 hours Severity: Moderate Persistent/Worse since (date): 10/15/18 Persistent/Worse since (time): 15:15 Context: REPORTS: Rest Quality: REPORTS: "Pain" Radiation: REPORTS: Shoulder (R) Associated Symptoms: DENIES: Nausea, Vomiting, Diaphoresis, Shortness of Breath, Hurts to Breathe, Palpitations, Productive Cough (blood), Productive Cough (sputum), Weakness, Dizziness Modifying Factors: improves with: Pressing On Area Similar Symptoms Previously: Yes Recently seen/treated/hospitalized: Yes (see above the above) Any Prior Injuries Related to Current Complaint?: No - Patient Home Medications Home Medications: Home Medications 10/15/18 - Patient Allergies Allergies/Adverse Reactions: Allergies Allergy/AdvReac Type Severity Reaction Status Date / Time Penicillins Allergy Intermediate HIVES Verified 10/15/18 21:38 Influenza Virus Vaccines Allergy NOT Verified 10/15/18 21:38 APPLICABLE Past Medical History - heen HEENT History: Denies History Cardiovascular History: Denies History Respiratory History: Asthma, COPD Gastrointestinal History: GERD Genitourinary History: Denies History Endocrine History: Hyperthyroidism, Other (please comment) Additional Endocrine History: no longer takes medications Musculoskeletal History: Denies History Neurological History: Gullian-[place] Syndrome Blood Disorders: Denies History Psychiatric History: Depression, Bi Polar Disorder, Schizophrenia, Anxiety Disorders, Depression LMP: 10/10/18 Cancer History: Denies History In Past Year Been Physically Harmed or Verbally Threatened: No History of MDRO: No Tobacco Use: Current Every Day Smoker Type of alcohol normally used: Beer In the Past 12 Months, Have Used or Abuse Any Substance: Marijuana Previous Surgical History: Yes Type / Date of Surgery: . Trach Anesthesia Reactions: No Malignant Hyperthermia: No Significant Family History: COPD Past Medical History Reviewed: Reviewed - No Changes ROS - Limitations ROS Limitations: No Limitations Constitution: REPORTS: Denies Symptoms Cardiovascular: REPORTS: Chest Pain Respiratory: REPORTS: Denies Resp Symptoms Neurological: REPORTS: Denies Neuro Symptoms Gastrointestinal: REPORTS: Denies GI Symptoms Endocrine: REPORTS: Denies Symptoms Musculoskeletal: REPORTS: Denies MS Symptoms Genitourinary: REPORTS: Denies Symptoms Eyes: REPORTS: Denies Symptoms ENT: REPORTS: Denies Symptoms Skin: REPORTS: Denies Skin Symptoms Lympathic: REPORTS: Denies Lympathic Symptoms Immunologic: POSITIVE: Denies Symptoms Psychiatric: POSITIVE: Denies Psych Symptoms Chest Pain PE - General Appearance General Appearance: REPORTS: Alert, Cooperative, No Acute Distress, No Evidence of Trauma - HEENT HEENT: POSITIVE: Head Inspection Nml, Eyes Inspection Nml, Ears Inspection Nml, Nose Inspection Nml, Oral/Dental Inspect. Nml, Pharynx Inspect. Nml, PERRL, EOMI - Neck Neck: REPORTS: Normal Inspection, No Carotid Bruit - Respiratory Respiratory: REPORTS: No Respiratory Distress, Breath Sounds Normal, See Diagram. DENIES: Chest Non-Tender (Chest wall tender on palpation anteriorly) - Cardiovascular Cardiovascular: REPORTS: Regular Rate and Rhythm, Heart Sounds Normal, Equal Pulses, Strong Pulses, No Murmur, No Gallop, No Friction Rub, No JVD Peripheral Pulses: Radial (R): 2+, Radial (L): 2+ - Abdomen Abdomen: Soft: (All Quadrants), Normal Bowel Sounds: (All Quadrants), Denies Tenderness: (All Quadrants), No Splenomegaly: (All Quadrants), No Hepatomegaly: (All Quadrants), No Guarding: (All Quadrants), No Rebound: (All Quadrants), No Palpable Pulse: (All Quadrants), No Palpabale Mass: (All Quadrants), No Distention: (All Quadrants), No Rigidity: (All Quadrants) - Skin Skin: REPORTS: Intact, Normal For Race, Warm, Dry, No Rash - Extremities Extremity: Non-Tender: (All Extremities), Normal ROM: (All Extremities), Normal Inspection: (All Extremities) - Neurological / Psychological Neurological: POSITIVE: Affect Apporpriate, Oriented X3, outside event sales specialist Normal As Tested, Motor Normal, Sensation Normal Images - Complete Complete: 1 - Area of described pain; tender on palpation Chest Pain Progress - Results Reviewed by me Xrays/CTs/US Reviewed by me: Yes Discussed with Radiologist: Yes Radiology Findings: Portable chest x-ray normal Lab Results Reviewed by Me: Yes (all normal, including d-dimer and troponin) CBC and BMP: 10/15/18 18:00 10/15/18 18:00 Lab Results:: Laboratory Results 10/15/1818 10/15/18 18:00 18:00 18:00 WBC 8.32 RBC 4.55 Hgb 13.8 Hct 40.0 MCV 87.9 MCH 30.3 MCHC 34.5 RDW Std Deviation 44.4 RDW Coeff of Kwame 14.0 Plt Count 329 MPV 10.0 Immature Gran % (Auto) 0.2 Neut % (Auto) 60.8 Lymph % (Auto) 29.9 [place] % (Auto) 7.1 Eos % (Auto) 1.6 Baso % (Auto) 0.4 Immature Gran # (Auto) 0.02 Neut # (Auto) 5.06 Lymph # (Auto) 2.49 [place] # (Auto) 0.59 Eos # (Auto) 0.13 Baso # (Auto) 0.03 WBC Morphology Comment Normal morphology Plt Morphology Comment Normal morphology RBC Morph Comment Normal morphology D-Dimer 0.26 Sodium 141 Potassium 4.1 Chloride 112 Carbon Dioxide 23 Anion Gap 6 BUN 16 Creatinine 0.7 Estimated GFR > 60 BUN/Creatinine Ratio 22.85 H Glucose 122 H Calculated Osmolality 293.0 H Calcium 8.8 Total Bilirubin 0.3 AST 28 ALT 49 Alkaline Phosphatase 75 CK-MB (CK-2) Troponin I Total Protein 6.5 Albumin 3.9 Globulin 2.5 Albumin/Globulin Ratio 1.50 10/15/18 18:00 WBC RBC Hgb Hct MCV MCH MCHC RDW Std Deviation RDW Coeff of Kwame Plt Count MPV Immature Gran % (Auto) Neut % (Auto) Lymph % (Auto) [place] % (Auto) Eos % (Auto) Baso % (Auto) Immature Gran # (Auto) Neut # (Auto) Lymph # (Auto) [place] # (Auto) Eos # (Auto) Baso # (Auto) WBC Morphology Comment Plt Morphology Comment RBC Morph Comment D-Dimer Sodium Potassium Chloride Carbon Dioxide Anion Gap BUN Creatinine Estimated GFR BUN/Creatinine Ratio Glucose Calculated Osmolality Calcium Total Bilirubin AST ALT Alkaline Phosphatase CK-MB (CK-2) 7.51 H Troponin I < 0.012 Total Protein Albumin Globulin Albumin/Globulin Ratio EKG Interpreted/Reviewed By Me:: Yes (normal) EKG Interpretation:: POSITIVE: Normal Sinus Rhythm, Normal Rate, Normal Intervals, Normal Camilla, Normal QRS, Normal ST/T - Patient's Progress Pain Medication Addressed: POSITIVE: Yes (Patient given 4 mg of morphine sulfate in the emergency room) School/Work Release Addressed: POSITIVE: Not Applicable Re-Examine Time: 19:20 Re-Examine Comment: Discomfort less. Re-Examine Time:: 19:30 Re-Examine Comment: In view of the patient's recent positive cardiac stress test, and the fact that she is scheduled for coronary arteriogram as above, case was discussed with Dr. Mallory, windows admin at [facility]. His advice was that coronary angiography was not emergently needed at this time. Recommended that we admit the patient here for serial cardiac enzymes. Case then discussed with , hospitalist at 1934, and patient is admitted here for further evaluation. Status: POSITIVE: Improved, Re-Examined Quality Measure Initiative: CP/AMI: POSITIVE: EKG, ASA - Consult Consult (If Yes, Name of Consulting MD & Time Called): Yes (, cardiology, 1924; , hospitalist, 1934 ) Consulting MD will see pt:: POSITIVE: [facility] Admit Counseled: POSITIVE: Patient, RE: Lab Results, RE: Radiology Results, RE: DX, RE: Need for F/U Patient Care Time - Estimated PCT Patient Care Time (In Minutes): 50 Vital Signs - Recent Vital Signs Vital Signs: Vital Signs (Last 8 hours) Temp Pulse Pulse Pulse Resp BP BP 10/16/18 00:12 97.1 F 66 18 10/15/18 23:00 70 10/15/18 22:07 97.0 F 78 20 10/15/18 21:27 97.4 F 81 90 16 101/54 10/15/18 17:36 97.8 F 94 14 133/78 BP Pulse Ox 10/16/18 00:12 102/66 96 10/15/18 23:00 97 10/15/18 22:07 113/74 95 10/15/18 21:27 94 10/15/18 17:36 93 - VS Reviewed Vital Signs Reviewed: Yes Discharge Clinical Impression: Chest pain Discharge Disposition: Admit to Inpatient Condition: Fair Date Decision to Admit to Inpatient: 10/15/18 Time Decision to Admit to Inpatient: 19:35
[2018-10-16] MEDS: MORPHINE SULFATE 2 MG/1 ML IV PRN (04:36)
[2018-10-16] MEDS: Metoprolol TARTRATE Tab 25 MG TAB PO SCH (09:48)
[2018-10-16] MEDS ORDERED: HYDROcodone-APAP 5 MG -325 MG TABLET PO PRN (09:50)
[2018-10-16] MEDS ORDERED: LORazepam 1 MG TABLET PO PRN (10:09)
[2018-10-16] MEDS ORDERED: ASPIRIN 325 MG EC TABLET PO SCH (10:15)
--- NOTE | 2018-10-16 10:37 | DCSUMMARY ---
Hospitalization Summary Admit Date: 10/15/2018 Discharge Date: 10/16/18 Hospital Course: Transfer diagnoses 1. Chest pressure with abnormal stress test 2. History of COPD 3. Tobacco abuse 4. 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 History of GERD 7. anxiety Hospital course This is a 43 years old female with medical history significant for history of COPD, tobacco abuse and history of Guillain-Girard in the past who was here last month and was transferred on the [address] [facility] because of abnormal stress test she was suppose to have an angiogram the next day but she told me it was delayed from 8 AM to 5:30 PM so she got anxious and she signed AMA. She came in yesterday as she started to have chest pressure felt in the anterior chest there is some numbness in the right arm her pain was 7 out of 10 she was giving nitroglycerin in the ER. Her enzymes were negative EKG did not show changes. The ER physician did speak with Dr. Garcia the senior nuclear medicine technologist who suggested admission overnight and repeat her enzymes. Enzymes were repeated and they remained negative. I saw her the next day she continued to complain from chest pressure. She rated it about 6 out of 10. She was also somewhat anxious. Because of the ongoing chest pain I did speak with Dr. Diaz the senior nuclear medicine technologist and he suggested transfer because of for abnormal stress test and she continued to have symptoms. Patient will be transferred at one point today. The stress test that she had back in September showed predominantly fixed anterior ventricular wall defect with normal motion and normal ejection fraction. There is a small mild intensity area of reversibility near the inferior apex, there is a fixed defect involving the inferior base. This time the patient said she will stay at [facility] until she have the angiogram done. Laboratory Results 10/15/18 10/15/18 10/15/18 18:00 18:00 18:00 WBC 8.32 RBC 4.55 Hgb 13.8 Hct 40.0 MCV 87.9 MCH 30.3 MCHC 34.5 RDW Std Deviation 44.4 RDW Coeff of Kwame 14.0 Plt Count 329 MPV 10.0 Immature Gran % (Auto) 0.2 Neut % (Auto) 60.8 Lymph % (Auto) 29.9 [place] % (Auto) 7.1 Eos % (Auto) 1.6 Baso % (Auto) 0.4 Immature Gran # (Auto) 0.02 Neut # (Auto) 5.06 Lymph # (Auto) 2.49 [place] # (Auto) 0.59 Eos # (Auto) 0.13 Baso # (Auto) 0.03 WBC Morphology Comment Normal morphology Plt Morphology Comment Normal morphology RBC Morph Comment Normal morphology D-Dimer 0.26 Sodium 141 Potassium 4.1 Chloride 112 Carbon Dioxide 23 Anion Gap 6 BUN 16 Creatinine 0.7 Estimated GFR > 60 BUN/Creatinine Ratio 22.85 H Glucose 122 H Calculated Osmolality 293.0 H Calcium 8.8 Total Bilirubin 0.3 AST 28 ALT 49 Alkaline Phosphatase 75 CK-MB (CK-2) Troponin I Total Protein 6.5 Albumin 3.9 Globulin 2.5 Albumin/Globulin Ratio 1.50 Triglycerides Cholesterol LDL Cholesterol, Calc VLDL Cholesterol HDL Cholesterol Cholesterol/HDL Ratio TSH Free T4 10/15/18 10/15/18 10/16/18 18:00 23:40 04:40 WBC RBC Hgb Hct MCV MCH MCHC RDW Std Deviation RDW Coeff of [place] Plt Count MPV Immature Gran % (Auto) Neut % (Auto) Lymph % (Auto) [place] % (Auto) Eos % (Auto) Baso % (Auto) Immature Gran # (Auto) Neut # (Auto) Lymph # (Auto) [place] # (Auto) Eos # (Auto) Baso # (Auto) WBC Morphology Comment Plt Morphology Comment RBC Morph Comment D-Dimer Sodium Potassium Chloride Carbon Dioxide Anion Gap BUN Creatinine Estimated GFR BUN/Creatinine Ratio Glucose Calculated Osmolality Calcium Total Bilirubin AST ALT Alkaline Phosphatase CK-MB (CK-2) 7.51 H Troponin I < 0.012 < 0.012 Total Protein Albumin Globulin Albumin/Globulin Ratio Triglycerides 241 H Cholesterol 153 LDL Cholesterol, Calc 53.800 VLDL Cholesterol 48 H HDL Cholesterol 51 Cholesterol/HDL Ratio 3.00 TSH Free T4 10/16/18 10/16/18 04:40 08:22 WBC RBC Hgb Hct MCV MCH MCHC RDW Std Deviation RDW Coeff of [place] Plt Count MPV Immature Gran % (Auto) Neut % (Auto) Lymph % (Auto) [place] % (Auto) Eos % (Auto) Baso % (Auto) Immature Gran # (Auto) Neut # (Auto) Lymph # (Auto) [place] # (Auto) Eos # (Auto) Baso # (Auto) WBC Morphology Comment Plt Morphology Comment RBC Morph Comment D-Dimer Sodium Potassium Chloride Carbon Dioxide Anion Gap BUN Creatinine Estimated GFR BUN/Creatinine Ratio Glucose Calculated Osmolality Calcium Total Bilirubin AST ALT Alkaline Phosphatase CK-MB (CK-2) Troponin I < 0.012 Total Protein Albumin Globulin Albumin/Globulin Ratio Triglycerides Cholesterol LDL Cholesterol, Calc VLDL Cholesterol HDL Cholesterol Cholesterol/HDL Ratio TSH 1.18 Free T4 0.93 Discharge instruction Diet regular Activity as started Medications Active Medications Hydrocodone Bitart/Acetaminophen ([place] 5/325 Tab) 1 tab PO Q4H PRN PRN Reason: Pain Last Admin: 10/16/18 10:34 Dose: 1 tab Documented by: Aspirin (Aspirin Ec) 325 mg PO DAILY LIVE Last Admin: 10/16/18 10:35 Dose: 325 mg Documented by: Calcium Carbonate (Tums) 1 - 2 tab PO QID PRN PRN Reason: Heartburn Sodium Chloride (Normal Saline 0.9%) 25 mls @ 200 mls/hr IV .Post Infusion PRN PRN Reason: Flush Lidocaine HCl (Lidocaine Buffered Inj) 0.5 ml SUBD ONCE PRN PRN Reason: IV Starts Lorazepam (Ativan Tab) 1 mg PO TID PRN PRN Reason: Anxiety Last Admin: 10/16/18 10:35 Dose: 1 mg Documented by: Morphine Sulfate (Morphine Inj) 2 - 8 mg IV Q5M PRN PRN Reason: Pain Last Admin: 10/16/18 04:36 Dose: 2 mg Documented by: Follow-up per [facility] post discharge Exam - Vitals Vital Signs: Vital Signs Temperature 98.1 F Temperature Source Temporal Artery Scan Pulse Rate [Pulse Oximeter] 57 Pulse Rate [Apical] 90 Pulse Rate [Telemetry] 70 Pulse Rate 62 Respiratory Rate 16 Blood Pressure [Right Arm] 98/52 Blood Pressure [Left Arm] 88/50 Blood Pressure 101/54 Pulse Ox 97 Oxygen Delivery Method Room Air Height 5 ft 1 in Weight 202 lb 8 oz - General General Appearance: No Acute Distress, Cooperative - Head Head Exam: Normal Inspection - Eye Eye Exam: POSITIVE: Normal Appearance - ENT ENT Exam: POSITIVE: Normal Exam - Neck Neck Exam: Normal Inspection - Respiratory Respiratory Exam: POSITIVE: Clear to Auscultation - Bilaterally - Cardiovascular Cardiovascular Exam: POSITIVE: RRR - GI/Abdominal GI/Abdominal Exam: POSITIVE: Normal Bowel Sounds, Non Tender, Non Distended, Soft, No Organomegaly - Rectal Rectal Exam: POSITIVE: Deferred - External Exam: POSITIVE: Deferred Exam: POSITIVE: Deferred - Extremities Extremities Exam: POSITIVE: Normal Inspection - Back Back Exam: POSITIVE: Normal Inspection - Neurological Neurological Exam: POSITIVE: Alert, Oriented x 3, CN II-XII Intact, No Facial Droop, Speech Intact / Clear - Psychiatric Psychiatric Exam: POSITIVE: Normal Affect
== END 2018-10-16 13:20 | disposition short-term general hospital (02) ==
LOC: MED/SURG 17:36 → ER 17:36
PROVIDERS: ADMIT Internal Medicine; ATTEND Internal Medicine